=== PATIENT | male | born 1975 | race Caucasian/White ===

== ENCOUNTER 2024-08-05 13:50 | Day surgery (SDC) | payer OTHER, MEDICARE ==
[2024-08-05] MEDS ORDERED: Sodium Chloride 0.9(Preservative Free) 10 ML IJ ONE (13:51)
[2024-08-05] MEDS ORDERED: dexAMETHasone sodium phosphate IJ ONE (13:51)
[2024-08-05] MEDS ORDERED: LIDOCAINE HCL 1% AMPUL 5 ML IJ ONE (13:51)
[2024-08-05] MEDS ORDERED: Lactated Ringers 1,000 ML IV ONE (17:51)
--- NOTE | 2024-08-05 20:15 | XRAY ---
Indication: Left L3-L5 transforaminal ROSE Intraoperative fluoroscopy provided for 40 to seconds. 10 digital spot image submitted for interpretation demonstrates posterior needle tips projecting over expected left L3 and L4 nerve roots. Small amount of contrast injected for needle tip placement. Correlate with intraoperative findings/report.
--- NOTE | 2024-08-05 21:52 | XRAY ---
42 seconds of fluoroscopy were used in surgery for a left L3-L5 transforaminal ROSE.
== END 2024-08-05 17:20 | disposition home or self-care (01) ==
LOC: SDC-PAIN 13:50
PROVIDERS: ATTEND Psychiatry & Neurology Pain Medicine
DX: M54.16 Radiculopathy, lumbar region (principal)
CPT/HCPCS: 64483; 64484; 72100; J1100; Q9966

== ENCOUNTER 2025-02-17 15:22 | Day surgery (SDC) | payer OTHER, MEDICARE ==
[2025-02-17] MEDS ORDERED: LIDOCAINE HCL 1% 50 MG/5 ML VL IJ ONE (15:23)
[2025-02-17] MEDS ORDERED: Sodium Chloride 0.9(Preservative Free) 10 ML IJ ONE (15:23)
[2025-02-17] MEDS ORDERED: Lactated Ringers 1,000 ML IV ONE (18:16)
--- NOTE | 2025-02-18 08:41 | XRAY ---
Indication: Right L3-L5 transforaminal ROSE Intraoperative fluoroscopy provided for 52 seconds. 6 digital spot images submitted for interpretation demonstrates posterior needle tips projecting over expected right L3 and L4 nerve roots. Small amount of contrast injected for needle tip placement. Correlate with intraoperative findings/report. Incidental incompletely visualized upper lumbar fusion hardware.
--- NOTE | 2025-02-18 09:35 | XRAY ---
52 seconds of fluoroscopy was used in surgery for a right L3-L5 transforaminal ROSE.
== END 2025-02-17 19:05 | disposition home or self-care (01) ==
LOC: SDC-PAIN 15:22
PROVIDERS: ATTEND Psychiatry & Neurology Pain Medicine
DX: M54.16 Radiculopathy, lumbar region (principal)